=== PATIENT | male | born 1965 | race Caucasian/White ===

== ENCOUNTER → 2017-01-14 | Outpatient (CLI) | payer OTHER | LOC: EMI 18:07 | DX: S43.004A Unspecified dislocation of right shoulder joint, initial encounter (principal); M25.511 Pain in right shoulder; M75.111 Incomplete rotator cuff tear or rupture of right shoulder, not specified as traumatic; M25.40 Effusion, unspecified joint; M75.21 Bicipital tendinitis, right shoulder; R59.0 Localized enlarged lymph nodes | CPT/HCPCS: 73221 ==